=== PATIENT | female | born 1995 | race Two or more races ===

== ENCOUNTER 2023-08-22 18:53 | Emergency (ER) | payer OTHER ==
[~2023-08-22] VITALS: Ht 175.3 cm; Wt 75.7 kg
== END 2023-08-22 20:41 | disposition home or self-care (01) ==
LOC: ER 18:54
DX: N76.4 Abscess of vulva (principal); Z88.6 Allergy status to analgesic agent

== ENCOUNTER → 2023-11-14 12:33 | Outpatient (CLI) | payer OTHER ==
[2023-11-14 13:43] LABS: PH,URINE 6.5 (5.0-8.0); URINE APPEARANCE Clear; URINE BILIRRUBIN Negative (NEGATIVE); URINE BLOOD Moderate; URINE COLOR Yellow; URINE GLUCOSE Negative (NEGATIVE); URINE LEUKOCYTE Negative; URINE NITRATE Negative; URINE PROTEIN Negative (NEGATIVE); URINE UROBILINOGEN 0.2 E.U./dl
[2023-11-14 13:44] LABS: URINE BACTERIA 93.2 uL (0.0-1933); URINE EPITHELIAL CELLS 6.3 uL (0.0-38.8); URINE RBC 10.9 uL (0.0-20.8)
[2023-11-14 14:07] LABS: HEMATOCRIT 39.6 % (36.0-45.00); MEAN CELL VOLUME 87.2 fL (80.00-100.00); MEAN CORPUSCULAR HEMOGLOBIN 28.7 pg (27.00-32.0); MEAN CORPUSCULAR HGB CONC 32.9 g/dl (32.0-36.0); RED BLOOD COUNT 4.55 M/uL (4.00-6.00); RED CELL DISTRIBUTION WIDTH 14.4 % (11.5-14.5)
[2023-11-14 14:31] LABS: ALBUMIN 4.4 gm/dL (3.4-5.0); BILIRUBIN TOTAL 0.44 mg/dL (0.3-1.2); CALCIUM 9.5 mg/dL (8.5-10.1); CHOL HDL RATIO 4.1 (0-5.0); CREATININE SERUM 0.74 mg/dL (0.55-1.02); GFR 93.45; GLOBULINA 4.1 G/DL (2.4-3.5); POTASSIUM 3.86 mEq/L (3.5-5.1); TOTAL PROTEIN 8.5 gm/dL (6.4-8.2); TSH 2.03 uIU/mL (0.358-3.74)
[2023-11-14 14:47] LABS: PLATELET COUNT 274 K/uL (150-450)
== END | disposition home or self-care (01) ==
LOC: LAB 12:33
DX: R79.89 Other specified abnormal findings of blood chemistry (principal); N83.202 Unspecified ovarian cyst, left side; E55.9 Vitamin D deficiency, unspecified

== ENCOUNTER 2023-12-05 08:10 | Outpatient (CLI) | payer OTHER ==
[2023-12-05 09:13] LABS: GLUCOSE FASTING 102 mg/dL (65-100); GLUCOSE RANDOM 102 mg/dL (65-100)
== END 2023-12-05 08:11 | disposition home or self-care (01) ==
LOC: LAB 08:10
DX: R42 Dizziness and giddiness (principal); E11.69 Type 2 diabetes mellitus with other specified complication